=== PATIENT | female | born 1950 | race African-American/Black ===

== ENCOUNTER 2016-08-23 12:42 | Emergency (ER) | payer MEDICARE, BC ==
[~2016-08-23] VITALS: Ht 160 cm; Wt 95.3 kg
[~2016-08-23 12:42] MED LIST: ALBUTEROL2.5 MG/3 M INH; IBUPROFEN600 MG ORAL; LISINOPRIL5 MG ORAL; NORCO 5-325 TA1 EACH ORAL; PERCOCET 5-3251 EACH ORAL; SYNTHROID25 MCG PO; ZESTRIL10 MG PO
[2016-08-23 13:05] VITALS: BP 151/91
[2016-08-23] MEDS ORDERED: ROBAXIN-750750 MG PO (13:14)
[2016-08-23] MEDS ORDERED: NAPROSYN500 M1 ORAL (13:14)
[2016-08-23] MEDS ORDERED: Ketorolac 60mg Inj IM ONE (13:15)
--- NOTE | 2016-08-23 13:16 | Emergency Room Report ---
History of Present Illness General Chief Complaint: Lower Back Pain or Injury Source: Patient Present Illness HPI 58-year-old female complains of left-sided sciatica for 3 days. Associated symptoms includes lower left sided back pain that radiates to the left heel. States pain is currently at a 10 and worse with movement and pressing down the leg and penis slightly improved with [id number] Aleve and taking one Tylenol today. States that this is a chronic issue and she periodically does get flareups of her last flareup being a few months ago. Patient does Curry stretches at home as part of her chronic management of her sciatica. Patient denies any dysuria, incontinence, lower extremity weakness, foot drop, saddle anesthesia, numbness, or tingling. Allergies: Coded Allergies: No Known Allergies (Unverified , 05/26/12) Patient History Past Medical History: see triage record Now: No Immunizations: UTD Reviewed Nursing Documentation: PMH: Agreed, PSxH: Agreed Nursing Documentation-PMH Hx Hypertension: Yes Hx Asthma: Yes Hx Neurological Problems: Yes - thryoid Review of Systems All Other Systems: negative except mentioned in HPI Physical Exam Vital Signs Date Time Temp Pulse Resp B/P Pulse Ox O2 Delivery O2 Flow Rate FiO2 08/23/16 12:54 97.9 69 16 151/91 100 Room Air Sp02 EP Interpretation: reviewed, normal General Appearance: no apparent distress, alert, GCS 15, non-toxic Head: normocephalic, atraumatic Eyes: bilateral eye PERRL, bilateral eye normal inspection ENT: hearing grossly normal, normal voice Neck: full range of motion, supple/symm/no masses Respiratory: chest non-tender, lungs clear, normal breath sounds, speaking full sentences Cardiovascular #1: normal peripheral pulses, regular rate, rhythm, no edema, no murmur, no rub, normal capillary refill Cardiovascular #2: 2+ dorsalis pedis (R), 2+ dorsalis pedis (L) Genitourinary: no CVA tenderness Musculoskeletal: gait/station normal, normal range of motion, tender - + Left sided perispinal tenderness. No bony tenderness. No abnormal spinal curvature Neurologic: alert, oriented x3, responsive, motor strength/tone normal, DTRs symmetric, sensory intact, speech normal Psychiatric: judgement/insight normal, memory normal, mood/affect normal, no suicidal/homicidal ideation Reflexes: 3+ knee (R), 3+ knee (L) Skin: normal color, no rash, warm/dry, well hydrated Lymphatic: no adenopathy Medical Decision Making PA Attestation Dr. Lima my supervising physician with whom patient management has been discussed with. Diagnostic Impression: Primary Impression: Lumbago with sciatica, left side ER Course Pt. presents to the ED c/o chronic sciatica Ddx considered but are not limited to sciatica, muscle strain, trauma, spinal stenosis Vital signs: are WNL, pt. is afebrile H&PE are most consistent with lumbago with sciatica along L4 dermatome ORDERS: none required at this time, the diagnosis is clinical ED INTERVENTIONS: Toradol 60mg IM DISCHARGE: At this time pt. is stable for d/c to home. Will provide printed patient care instructions, and any necessary prescriptions. Care plan and follow up instructions have been discussed with the patient prior to discharge. Last Vital Signs Date Time Temp Pulse Resp B/P Pulse Ox O2 Delivery O2 Flow Rate FiO2 08/23/16 13:05 97.9 16 151/91 100 Room Air 08/23/16 12:54 69 Status: improved Disposition: HOME, SELF-CARE Scripts Methocarbamol* (ROBAXIN-750*) 750 Mg Tablet 750 MG PO TID, #21 TAB 0 Refills Prov: SABRY,TAMEEM P.A. 08/23/16 Naproxen* (NAPROSYN*) 500 Mg Tablet 500 MG ORAL TWICE A DAY for 14 Days, #30 TAB Prov: SABRY,TAMEEM P.A. 08/23/16 Patient Instructions: Back Pain, Adult Additional Instructions: Advised patient to take needed. Advised patient that muscle relaxers causes drowsiness and to not take it if they plan on leaving the house or operating heavy machinery. Patient education on Curry method back exercises for radiculopathy and given hand out with stretches detailed. Advised patient to sleep with pillow behind leg if laying supine or between the knees if laying on their side. Advised patient to wear proper footwear with good insoles in addition to good ergonomics while at home and at work. Patient encouraged for weight loss through diet and exercise to help prevent recurrence of future back pain. Advised patient to go to the ER immediately if she experiences any new LE numbness, weakness, irretractible back pain, or if any paralysis, urinary, or bowel incontinence begins. BRITANY REYNA Aug 23, 2016 13:16
[2016-08-23 13:30] VITALS: BP 151/91
== END 2016-08-23 13:34 | disposition home or self-care (01) ==
LOC: EMR 13:21
DX: M54.42 Lumbago with sciatica, left side (principal); I10 Essential (primary) hypertension; J45.909 Unspecified asthma, uncomplicated
CPT/HCPCS: 96372; 99284

== ENCOUNTER 2017-09-20 18:13 | Inpatient (IN) | payer MEDICARE, BC ==
[~2017-09-20] VITALS: Ht 160 cm; Wt 99.8 kg
[~2017-09-20 18:13] MED LIST changes: +NAPROSYN500 M1 ORAL; +ROBAXIN-750750 MG PO
[2017-09-20 18:31] VITALS: BP 134/76
[2017-09-20] MEDS ORDERED: Ipratropium 0.02% Inh Soln 2.5ml UD HHN ONE (18:45)
[2017-09-20] MEDS ORDERED: Solu-MEDROL 125mg Inj IVP ONE (18:45)
[2017-09-20] MEDS: Albuterol ud Inhalation HHN SCH ×3 (18:55→20:04)
[2017-09-20 19:21] LABS: BASOPHILS % (AUTO) 1.8 % (0.0-2.0); EOSINOPHILS % (AUTO) 3.5 % (0.0-3.0); HEMATOCRIT 34.3 % (37.0-47.0); HEMOGLOBIN 11.1 G/DL (12.0-16.0); LYMPHOCYTES % (AUTO) 30.8 % (20.0-45.0); MEAN CORPUSCULAR VOLUME 86 FL (80-99); MONOCYTES % (AUTO) 7.1 % (1.0-10.0); NEUTROPHILS % (AUTO) 56.7 % (45.0-75.0); PLATELET COUNT 277 K/UL (150-450); RED BLOOD COUNT 3.98 M/UL (4.20-5.40); RED CELL DISTRIBUTION WIDTH 13.8 % (11.6-14.8); WHITE BLOOD COUNT 6.4 K/UL (4.8-10.8)
[2017-09-20] MEDS ORDERED: VITAMIN D400 INTLU ORAL (19:24)
[2017-09-20 19:30] VITALS: BP 124/66
[2017-09-20 19:38] LABS: ANION GAP 9 mmol/L (5-15); BLOOD UREA NITROGEN 16 mg/dL (7-18); CALCIUM 8.7 MG/DL (8.5-10.1); CARBON DIOXIDE 25 MMOL/L (21-32); CHLORIDE 106 MMOL/L (98-107); POTASSIUM 4.4 MMOL/L (3.5-5.1); SODIUM 140 MMOL/L (136-145)
[2017-09-20 19:47] LABS: INR 0.9 (0.9-1.1)
[2017-09-20 19:50] LABS: ALANINE AMINOTRANSFERASE 26 U/L (12-78); ALBUMIN 3.2 G/DL (3.4-5.0); ALBUMIN/GLOBULIN RATIO 0.6 (1.0-2.7); ALKALINE PHOSPHATASE 76 U/L (46-116); ASPARTATE AMINO TRANSFERASE 27 U/L (15-37); BILIRUBIN,TOTAL 0.2 MG/DL (0.2-1.0); CREATINE KINASE 173 U/L (26-308)
[2017-09-20 20:30] VITALS: BP 129/74
[2017-09-20 20:52] LABS: APPEARANCE,URINE CLEAR; BILIRUBIN, URINE NEGATIVE (NEGATIVE); COLOR,URINE YELLOW; GLUCOSE, URINE (UA) NEGATIVE (NEGATIVE); KETONES,URINE NEGATIVE (NEGATIVE); LEUKOCYTE ESTERASE ,URINE 1+ (NEGATIVE); NITRITE,URINE NEGATIVE (NEGATIVE); PH,URINE 6 (4.5-8.0); PROTEIN,URINE NEGATIVE (NEGATIVE); UROBILINOGEN,URINE NORMAL MG/DL (0.0-1.0)
[2017-09-20] MEDS ORDERED: COZAAR25 MG ORAL (21:18)
[2017-09-20 21:30] VITALS: BP 126/70
[2017-09-20 22:30] VITALS: BP 109/69
--- NOTE | 2017-09-20 23:14 | Emergency Room Report ---
History of Present Illness General Chief Complaint: Dyspnea/Respdistress Source: Patient Present Illness HPI The patient presents with several days of dyspnea and wheezing. She's been using her nebulizer adding 3 doses at a time. It's been worse since Thursday. She denies any fevers but sometimes break out in sweats. She denies any chest pain. She has a cough that's been nonproductive. There is no vomiting or diarrhea and no dysuria. She states this is the worst attack she's ever had. She's never been intubated in the past. She's been off of steroids for some time at this point. She feels that she needs steroids at this time. She has had problem with allergies. She's had difficulty filling her prescriptions recently because of the cost and insurance - mostly inhalers and inhaled steroids. No chest pain, rashes, headache, sore throat, extremity pain, depression. TRISTAN. Stress test 1 1/2 years ago "normal". Allergies: Coded Allergies: No Known Allergies (Unverified , 05/26/12) Patient History Past Medical History: see triage record Social History: Denies: smoking, alcohol use Social History Narrative lives by self Last Menstrual Period: na Reviewed Nursing Documentation: PMH: Agreed, PSxH: Agreed Nursing Documentation-PMH Past Medical History: No History, Except For Hx Hypertension: Yes Hx Asthma: Yes Hx Neurological Problems: Yes - thryoid Review of Systems All Other Systems: negative except mentioned in HPI Physical Exam Vital Signs Date Time Temp Pulse Resp B/P (MAP) Pulse Ox O2 Delivery O2 Flow Rate FiO2 09/20/17 18:21 98.1 79 24 142/82 96 Room Air 98.1 09/20/17 18:49 21 Sp02 EP Interpretation: reviewed, normal General Appearance: well appearing, no apparent distress, GCS 15 Head: normocephalic Eyes: bilateral eye normal inspection, bilateral eye PERRL ENT: normal pharynx, moist mucus membranes Neck: supple Respiratory: wheezing, expiration - audible at bedside Cardiovascular #1: regular rate, rhythm Cardiovascular #2: 2+ radial (R) Gastrointestinal: normal inspection, normal bowel sounds, non tender, no mass, non-distended, overweight Musculoskeletal: back normal, gait/station normal, normal range of motion, no calf tenderness Neurologic: alert, oriented x3, grossly normal Psychiatric: mood/affect normal Skin: normal inspection, warm/dry Medical Decision Making Diagnostic Impression: Primary Impression: COPD exacerbation Additional Impression: Eosinophilia ER Course Patient presents with dyspnea and wheezing - "worst asthma attack ever". DDx: AMi, asthma, bronchitis, pneumonia, PE amongst others. Latter unlikely clinically. Evaluation with EKG, CXR and labs. Treatment with steroids, beta agents and hydration. EKG no acute injury. CXR no infiltrate. WBC normal with eosinophilia. CMP unremarkable. Improved with aggressive treatment, however still with some tightness in chest. As "worst attack" needs continued treatment and hospitalization. Admit telemetry. Laboratory Tests Test 09/20/17 19:00 09/20/17 20:40 White Blood Count 6.4 K/UL (4.8-10.8) Red Blood Count 3.98 M/UL (4.20-5.40) L Hemoglobin 11.1 G/DL (12.0-16.0) L Hematocrit 34.3 % (37.0-47.0) L Mean Corpuscular Volume 86 FL (80-99) Mean Corpuscular Hemoglobin 27.8 PG (27.0-31.0) Mean Corpuscular Hemoglobin Concent 32.3 G/DL (32.0-36.0) Red Cell Distribution Width 13.8 % (11.6-14.8) Platelet Count 277 K/UL (150-450) Mean Platelet Volume 8.5 FL (6.5-10.1) Neutrophils (%) (Auto) 56.7 % (45.0-75.0) Lymphocytes (%) (Auto) 30.8 % (20.0-45.0) Monocytes (%) (Auto) 7.1 % (1.0-10.0) Eosinophils (%) (Auto) 3.5 % (0.0-3.0) H Basophils (%) (Auto) 1.8 % (0.0-2.0) Prothrombin Time 9.9 SEC (9.30-11.50) Prothrombin Time INR 0.9 (0.9-1.1) PTT 29 SEC (23-33) Sodium Level 140 MMOL/L (136-145) Potassium Level 4.4 MMOL/L (3.5-5.1) Chloride Level 106 MMOL/L (98-107) Carbon Dioxide Level 25 MMOL/L (21-32) Anion Gap 9 mmol/L (5-15) Blood Urea Nitrogen 16 mg/dL (7-18) Creatinine 1.0 MG/DL (0.55-1.30) Estimate Glomerular Filtration Rate > 60 mL/min (>60) Glucose Level 99 MG/DL (74-106) Lactic Acid Level 0.90 mmol/L (0.66-2.22) Calcium Level 8.7 MG/DL (8.5-10.1) Total Bilirubin 0.2 MG/DL (0.2-1.0) Aspartate Amino Transferase (AST) 27 U/L (15-37) Alanine Aminotransferase (ALT) 26 U/L (12-78) Alkaline Phosphatase 76 U/L (46-116) Total Creatine Kinase 173 U/L (26-308) Troponin I 0.000 ng/mL (0.000-0.056) Pro-B-Type Natriuretic Peptide 115 pg/mL (0-125) Total Protein 8.2 G/DL (6.4-8.2) Albumin 3.2 G/DL (3.4-5.0) L Globulin 5.0 g/dL Albumin/Globulin Ratio 0.6 (1.0-2.7) L Urine Color Yellow Urine Appearance Clear Urine pH 6 (4.5-8.0) Urine Specific [place] 1.010 (1.005-1.035) Urine Protein Negative (NEGATIVE) Urine Glucose (UA) Negative (NEGATIVE) Urine Ketones Negative (NEGATIVE) Urine Occult Blood Negative (NEGATIVE) Urine Nitrite Negative (NEGATIVE) Urine Bilirubin Negative (NEGATIVE) Urine Urobilinogen Normal MG/DL (0.0-1.0) Urine Leukocyte Esterase 1+ (NEGATIVE) H Urine RBC 0-2 /HPF (0 - 2) Urine WBC 5-10 /HPF (0 - 2) H Urine Squamous Epithelial Cells Few /LPF (NONE/OCC) Urine Bacteria Few /HPF (NONE) EKG Diagnostic Results Rate: normal Rhythm: NSR ST Segments: no acute changes Rhythm Strip Diag. Results EP Interpretation: yes Rhythm: NSR, no PVC's, no ectopy Chest X-Ray Diagnostic Results Chest X-Ray Diagnostic Results : Chest X-Ray Ordered: Yes # of Views/Limited/Complete: 1 View Indication: Shortness of Breath Interpretation: no consolidation, no effusion, no pneumothorax, other - COPD Impression: Other Electronically Signed by: Electronically signed by Darrion Gramajo MD Last Vital Signs Date Time Temp Pulse Resp B/P (MAP) Pulse Ox O2 Delivery O2 Flow Rate FiO2 09/21/17 00:30 98.0 82 16 134/61 100 Room Air 21 98.0 Status: improved Disposition: ADMITTED INPATIENT Condition: Serious Referrals: NON PHYSICIAN (PCP) Darrion Gramajo M.D. Sep 20, 2017 23:14
[2017-09-20 23:30] VITALS: BP 148/56
[2017-09-21] VITALS (12 sets, daily range): BP systolic 117–145; BP diastolic 61–92
[2017-09-21] MEDS ORDERED: Norco 5mg/325mg tab ORAL ONE (05:15)
[2017-09-21] MEDS ORDERED: LORazepam Inj 2mg/ml 1ml IV PRN (07:15)
[2017-09-21] MEDS ORDERED: Promethazine/Codeine 5ml UD ORAL PRN (07:15)
[2017-09-21] MEDS ORDERED: Morphine Sulfate 2mg/ml Inj IVP PRN (07:15)
[2017-09-21] MEDS ORDERED: Nitroglycerin Subl 0.4mg tab SL PRN (07:15)
[2017-09-21] MEDS ORDERED: Albuterol/Ipratropium 3ml neb HHN PRN (07:15)
[2017-09-21] MEDS: Losartan 50mg tab ORAL SCH (09:25)
[2017-09-21] MEDS: Methocarbamol 750mg tab ORAL SCH ×3 (09:25→18:17)
[2017-09-21] MEDS: Naproxen 500mg tab ORAL SCH ×2 (09:25→18:17)
[2017-09-21] MEDS: Heparin 5000 units/ml inj SUBQ SCH ×2 (09:26→20:34)
--- NOTE | 2017-09-21 09:49 | Diagnostic Imaging Report ---
Indication: Dyspnea Technique: One view of the chest Comparison: 09/30/2015 Findings: Better inspiration currently. Lungs and pleural spaces are clear. The heart size is normal. Previously demonstrated interstitial prominence is not evident currently. Right shoulder reverse prosthesis is again demonstrated Impression: No acute process
[2017-09-21] MEDS: Theophylline ER 100mg ORAL SCH ×2 (09:50→20:32)
[2017-09-21] MEDS: Zosyn 3.375gm q8h **Extended infusion IVPB SCH ×4 (10:28→19:53)
[2017-09-21] MEDS ORDERED: Zosyn 3.375gm inj ONE (10:29)
[2017-09-21] MEDS ORDERED: Piperacillin/Tazobactam 2.25 GM in D5W 55 ML IV SCH (14:00)
[2017-09-21] MEDS: Solu-MEDROL 125mg Inj IV SCH ×2 (15:03→18:17)
--- NOTE | 2017-09-21 19:45 | History and Physical Report ---
DATE OF ADMISSION: 09/20/2017 TIME SEEN: At 3 p.m. SWITCHBOARD OPERATOR ASSISTANT: Navdeep Horne M.D. CHIEF COMPLAINT: Asthma, exacerbation of COPD. BRIEF HISTORY: This is a 67-year-old female who lives at home and presented with shortness of breath, increasing for two days, came to [facility], diagnosed with asthma and COPD exacerbation, admitted to telemetry for further care. Currently, calm, slight shortness of breath, no complaint. PAST MEDICAL HISTORY: Includes asthma, COPD, and hypertension. PAST SURGICAL HISTORY: Bilateral knee and right shoulder. MEDICATIONS: Include methylprednisolone, Zosyn, losartan, Robaxin, naproxen, heparin, theophylline, albuterol, lorazepam, morphine, Phenergan With Codeine, and temazepam. ALLERGIES: Denies. SOCIAL HISTORY: No smoking. Positive alcohol. No intravenous drug abuse. FAMILY HISTORY: Noncontributory. REVIEW OF SYSTEMS: No chest pain. Slight shortness of breath. No nausea, vomiting, or diarrhea. PHYSICAL EXAMINATION: GENERAL: Calm in bed, oriented x3, in no acute distress. VITAL SIGNS: Temperature is 98 degrees, pulse 98, respiratory rate 14, and blood pressure 129/67. CARDIOVASCULAR: No murmur. LUNGS: Poor air exchange. Slight wheeze bilaterally. ABDOMEN: Bowel sounds positive. Nontender. Nondistended. EXTREMITIES: No cyanosis or edema. NEUROLOGIC: The patient moves all extremities, slightly weak. LABORATORY DATA: Labs at this time show hemoglobin 11.1, otherwise CBC is normal. BMP shows albumin 3.2, otherwise BMP is normal. INR is 0.9, PTT 29. Urinalysis shows 1+ leukocyte esterase. ASSESSMENT: 1. UTI. 2. Asthma. 3. COPD exacerbation. 4. Anemia. 5. Hypertension. PLAN: 1. O2 and pulmonary treatment. 2. Antibiotics per Infectious Disease. 3. Taper off steroids. 4. CBC and BMP in the morning. 5. We will continue to follow this patient medically. Santosh Reyes D.O. DR: JOSE JOB#: [id number] CC:
--- NOTE | 2017-09-21 22:42 | Consultation ---
History of Present Illness General Chief Complaint: Dyspnea/Respdistress Present Illness Allergies: Coded Allergies: No Known Allergies (Unverified , 05/26/12) Medication History Scheduled Levothyroxine Sodium* (Synthroid*), MCG PO DAILY, (Reported) Losartan Potassium* (Cozaar*), Unknown Dose ORAL DAILY, (Reported) Methocarbamol* (Robaxin-750*), 750 MG PO TID Naproxen* (Naprosyn*), 500 MG ORAL TWICE A DAY Scheduled PRN Albuterol Sulfate* (Albuterol Sulfate Hhn*), 3 ML INH Q6H PRN for Shortness of Breath, (Reported) Hydrocodone Bit/Acetaminophen 5-325* ([place] 5-325*), 1 TAB ORAL Q6H PRN for For Pain Ibuprofen* (Motrin*), 600 MG ORAL Q8H PRN for For Pain Oxycodone/Acetaminophen 5-325* (Percocet 5-325 Mg Tablet*), 1 TAB ORAL Q6H PRN for For Pain Discontinued Medications Lisinopril (Lisinopril*), MG ORAL DAILY, (Reported) Discontinued Reason: Pt stopped taking med Patient History Healthcare decision maker Resuscitation status Advanced Directive on File Review of Systems All Other Systems: negative except mentioned in HPI Physical Exam Physical Exam Narrative General Appearance: WD/WN Lines, tubes and drains: peripheral HEENT: normocephalic, atraumatic Neck: non-tender, normal alignment Respiratory/Chest: chest wall non-tender, + wheezing Breasts: no masses Cardiovascular/Chest: normal peripheral pulses, normal rate, no JVD Abdomen: normal bowel sounds, non tender Genitourinary/Rectal: normal genital exam Extremities: normal range of motion, non-tender Skin Exam: normal pigmentation, warm/dry Last 24 Hour Vital Signs Date Time Temp Pulse Resp B/P (MAP) Pulse Ox O2 Delivery O2 Flow Rate FiO2 09/21/17 19:22 87 16 Room Air 21 09/21/17 19:16 98.1 09/21/17 18:17 98.1 09/21/17 13:40 98.1 90 14 121/67 100 Room Air 21 98.1 09/21/17 11:58 98.1 90 14 121/67 100 Room Air 98.1 09/21/17 10:42 98.1 88 18 129/72 100 Room Air 98.1 09/21/17 09:25 98.1 09/21/17 09:25 121/68 09/21/17 09:02 98.1 93 21 121/68 100 Room Air 98.1 09/21/17 06:30 98.1 82 16 131/71 99 Room Air 21 98.1 09/21/17 06:09 208.4 09/21/17 05:30 208.4 86 18 118/67 99 Room Air 21 208.4 09/21/17 05:10 98.0 09/21/17 04:30 98.2 82 16 145/73 100 Room Air 21 98.2 09/21/17 03:30 98.2 88 18 124/65 99 Room Air 21 98.2 09/21/17 02:30 98.0 77 16 117/67 100 Room Air 21 98.0 09/21/17 01:30 98.0 80 17 130/62 100 Room Air 21 98.0 09/21/17 00:30 98.0 82 16 134/61 100 Room Air 21 98.0 09/20/17 23:30 98.0 86 17 148/56 100 Room Air 21 98.0 Intake and Output 09/20/17 09/21/17 19:00 07:00 Intake Total 0 ml 1000 ml Balance 0 ml 1000 ml Intake Oral 0 ml IV Total 1000 ml # Voids 3 Height (Feet): 5 Height (Inches): 3.00 Weight (Pounds): 220 Medications Current Medications Medications (Trade) Dose Ordered Sig/Catalino Route PRN Reason Start Time Stop Time Status Last Admin Dose Admin Albuterol/ Ipratropium (Albuterol/ Ipratropium) 3 ml Q4H PRN HHN dyspnea 09/21/17 07:15 09/26/17 07:14 Dextrose (Dextrose 50%) STAT PRN IV Hypoglycemia 09/21/17 07:15 10/21/17 07:14 Heparin Sodium (Porcine) (Heparin 5000 units/ml) 5,000 units EVERY 12 HOURS SUBQ 09/21/17 09:00 10/21/17 08:59 09/21/17 20:34 Lorazepam (Ativan 2mg/ml 1ml) 0.5 mg Q4H PRN IV For Anxiety 09/21/17 07:15 09/28/17 07:14 Losartan Potassium (Cozaar) 100 mg DAILY ORAL 09/21/17 09:00 10/21/17 08:59 09/21/17 09:25 Methocarbamol (Robaxin) 750 mg TID ORAL 09/21/17 09:00 10/21/17 08:59 09/21/17 18:17 Methylprednisolone Sodium Succinate (Solu-MEDROL) 60 mg EVERY 6 HOURS IV 09/21/17 12:00 10/21/17 11:59 09/21/17 18:17 Morphine Sulfate (Morphine Sulfate) 2 mg Q4H PRN IVP severe pain 7-10 09/21/17 07:15 09/28/17 07:14 Naproxen (Naprosyn) 500 mg TWICE A DAY ORAL 09/21/17 09:00 10/21/17 08:59 09/21/17 18:17 Nitroglycerin (Ntg) 0.4 mg Q5M X 3 DOSES PRN SL Prn Chest Pain 09/21/17 07:15 10/21/17 07:14 Ondansetron HCl (Zofran) 4 mg Q6H PRN IVP Nausea & Vomiting 09/21/17 07:15 10/21/17 07:14 Piperacillin Sod/ Tazobactam Sod 3.375 gm/Sodium Chloride 110 ml @ 27.5 mls/hr Q8HR@0200,1000,1800 IVPB 09/21/17 10:00 09/28/17 09:59 09/21/17 19:53 Promethazine HCl/ Codeine (Phenergan with Codeine) 5 ml Q6H PRN ORAL cough 09/21/17 07:15 10/21/17 07:14 Temazepam (Restoril) 15 mg HSPRN PRN ORAL Insomnia 09/21/17 07:15 09/28/17 07:14 09/21/17 20:33 Theophylline (Diogo-Dur) 100 mg EVERY 12 HOURS ORAL 09/21/17 09:00 10/21/17 08:59 09/21/17 20:32 Assessment/Plan Problem List: (1) COPD exacerbation ICD Codes: J44.1 - Chronic obstructive pulmonary disease with (acute) exacerbation SNOMED: 261914924 (2) Chronic pain ICD Codes: G89.29 - Other chronic pain SNOMED: 02742013 (3) Hypothyroidism ICD Codes: E03.9 - Hypothyroidism, unspecified SNOMED: 13932295 Navdeep Horne MD Sep 21, 2017 22:42
[2017-09-22] VITALS: BP 114/66
[2017-09-22] MEDS: Solu-MEDROL 125mg Inj IV SCH ×3 (00:37→12:15)
[2017-09-22] MEDS: Zosyn 3.375gm q8h **Extended infusion IVPB SCH ×4 (02:20→09:28)
[2017-09-22 04:00] VITALS: BP 130/87
[2017-09-22 08:00] VITALS: BP 150/94
[2017-09-22 08:26] LABS: HEMATOCRIT 34.6 % (37.0-47.0); HEMOGLOBIN 11.3 G/DL (12.0-16.0); MEAN CORPUSCULAR VOLUME 86 FL (80-99); PLATELET COUNT 308 K/UL (150-450); RED BLOOD COUNT 4.02 M/UL (4.20-5.40); RED CELL DISTRIBUTION WIDTH 14.1 % (11.6-14.8)
[2017-09-22] MEDS: Losartan 50mg tab ORAL SCH (08:30)
[2017-09-22] MEDS: Naproxen 500mg tab ORAL SCH ×2 (08:31→17:08)
[2017-09-22] MEDS: Theophylline ER 100mg ORAL SCH ×2 (08:31→22:18)
[2017-09-22] MEDS: Methocarbamol 750mg tab ORAL SCH ×3 (08:32→17:09)
[2017-09-22] MEDS: Heparin 5000 units/ml inj SUBQ SCH ×2 (08:36→22:17)
[2017-09-22 08:53] LABS: ANION GAP 12 mmol/L (5-15); BLOOD UREA NITROGEN 24 mg/dL (7-18); CALCIUM 8.9 MG/DL (8.5-10.1); CARBON DIOXIDE 22 MMOL/L (21-32); CHLORIDE 108 MMOL/L (98-107); CREATININE 1.1 MG/DL (0.55-1.30); POTASSIUM 4.1 MMOL/L (3.5-5.1); SODIUM 142 MMOL/L (136-145)
[2017-09-22 12:00] VITALS: BP 109/70
--- NOTE | 2017-09-22 13:26 | Pulmonology Progress Note ---
Assessment/Plan Problems: (1) COPD exacerbation (2) Hypothyroidism (3) Chronic pain Assessment/Plan respiratory treatment IV steroids iv abx titrate fio2 to sat of 92% check electrolytes pain management symptomatic treatment Subjective ROS Limited/Unobtainable: No Interval Events: less short of breath Allergies: Coded Allergies: No Known Allergies (Unverified , 05/26/12) Objective Last 24 Hour Vital Signs Date Time Temp Pulse Resp B/P (MAP) Pulse Ox O2 Delivery O2 Flow Rate FiO2 09/22/17 12:00 97.7 82 18 109/70 96 Room Air 97.7 09/22/17 12:00 83 09/22/17 10:05 82 16 Room Air 21 09/22/17 08:30 150/94 09/22/17 08:00 97.2 84 18 150/94 98 Room Air 97.2 84 09/22/17 08:00 89 09/22/17 04:00 97.5 84 18 130/87 98 Room Air 97.5 09/22/17 04:00 81 09/22/17 00:00 85 09/22/17 00:00 97.5 87 18 114/66 96 Room Air 97.5 09/21/17 20:00 97.7 84 18 135/92 96 Room Air 97.7 09/21/17 20:00 88 09/21/17 19:22 87 16 Room Air 21 09/21/17 19:16 98.1 09/21/17 18:17 98.1 09/21/17 13:40 98.1 90 14 121/67 100 Room Air 21 98.1 Intake and Output 09/21/17 09/22/17 19:00 07:00 Intake Total 240 ml 1610.5 ml Output Total 20 ml Balance 240 ml 1590.5 ml Intake Oral 240 ml IV Total 1610.5 ml Output Urine Total 20 ml # Voids 2 # Bowel Movements 1 Objective General Appearance: WD/WN Lines, tubes and drains: peripheral HEENT: normocephalic, atraumatic Neck: non-tender, normal alignment Respiratory/Chest: chest wall non-tender, lungs clear, normal breath sounds Breasts: no masses Cardiovascular/Chest: normal peripheral pulses, normal rate, no JVD Abdomen: normal bowel sounds, non tender Genitourinary/Rectal: normal genital exam Extremities: normal range of motion, non-tender Skin Exam: normal pigmentation, warm/dry Microbiology Date/Time Source Procedure Growth Status 09/20/17 19:05 Blood Blood Culture - Preliminary NO GROWTH AFTER 24 HOURS Resulted 09/20/17 19:00 Blood Blood Culture - Preliminary NO GROWTH AFTER 24 HOURS Resulted Laboratory Tests 09/22/17 07:55: White Blood Count 16.0H, Red Blood Count 4.02L, Hemoglobin 11.3L, Hematocrit 34.6L, Mean Corpuscular Volume 86, Mean Corpuscular Hemoglobin 28.2, Mean Corpuscular Hemoglobin Concent 32.7, Red Cell Distribution Width 14.1, Platelet Count 308, Mean Platelet Volume 8.5, Neutrophils (%) (Auto) , Lymphocytes (%) ( Auto) , Monocytes (%) (Auto) , Eosinophils (%) (Auto) , Basophils (%) (Auto) , Differential Total Cells Counted 100, Neutrophils % (Manual) 95H, Lymphocytes % (Manual) 4L, Monocytes % (Manual) 1, Eosinophils % (Manual) 0, Basophils % ( Manual) 0, Band Neutrophils 0, Platelet Estimate Adequate, Platelet Morphology Normal, Anisocytosis 1+, Sodium Level 142, Potassium Level 4.1, Chloride Level 108H, Carbon Dioxide Level 22, Anion Gap 12, Blood Urea Nitrogen 24H, Creatinine 1.1, Estimat Glomerular Filtration Rate 59.8, Glucose Level 144H, Calcium Level 8.9 Current Medications Medications (Trade) Dose Ordered Sig/Catalino Route PRN Reason Start Time Stop Time Status Last Admin Dose Admin Albuterol/ Ipratropium (Albuterol/ Ipratropium) 3 ml Q4H PRN HHN dyspnea 09/21/17 07:15 09/26/17 07:14 Dextrose (Dextrose 50%) STAT PRN IV Hypoglycemia 09/21/17 07:15 10/21/17 07:14 Heparin Sodium (Porcine) (Heparin 5000 units/ml) 5,000 units EVERY 12 HOURS SUBQ 09/21/17 09:00 10/21/17 08:59 09/22/17 08:36 Lorazepam (Ativan 2mg/ml 1ml) 0.5 mg Q4H PRN IV For Anxiety 09/21/17 07:15 09/28/17 07:14 09/22/17 02:35 Losartan Potassium (Cozaar) 100 mg DAILY ORAL 09/21/17 09:00 10/21/17 08:59 09/22/17 08:30 Methocarbamol (Robaxin) 750 mg TID ORAL 09/21/17 09:00 10/21/17 08:59 09/22/17 12:15 Methylprednisolone Sodium Succinate (Solu-MEDROL) 60 mg EVERY 6 HOURS IV 09/21/17 12:00 10/21/17 11:59 09/22/17 12:15 Morphine Sulfate (Morphine Sulfate) 2 mg Q4H PRN IVP severe pain 7-10 09/21/17 07:15 09/28/17 07:14 Naproxen (Naprosyn) 500 mg TWICE A DAY ORAL 09/21/17 09:00 10/21/17 08:59 09/22/17 08:31 Nitroglycerin (Ntg) 0.4 mg Q5M X 3 DOSES PRN SL Prn Chest Pain 09/21/17 07:15 10/21/17 07:14 Ondansetron HCl (Zofran) 4 mg Q6H PRN IVP Nausea & Vomiting 09/21/17 07:15 10/21/17 07:14 Piperacillin Sod/ Tazobactam Sod 3.375 gm/Sodium Chloride 110 ml @ 27.5 mls/hr Q8HR@0200,1000,1800 IVPB 09/21/17 10:00 09/28/17 09:59 09/22/17 09:28 Promethazine HCl/ Codeine (Phenergan with Codeine) 5 ml Q6H PRN ORAL cough 09/21/17 07:15 10/21/17 07:14 Temazepam (Restoril) 15 mg HSPRN PRN ORAL Insomnia 09/21/17 07:15 09/28/17 07:14 09/21/17 20:33 Theophylline (Diogo-Dur) 100 mg EVERY 12 HOURS ORAL 09/21/17 09:00 10/21/17 08:59 09/22/17 08:31 Navdeep Horne MD Sep 22, 2017 13:25
--- NOTE | 2017-09-22 14:32 | General Progress Note ---
Assessment/Plan Problem List: (1) UTI (urinary tract infection) ICD Codes: N39.0 - Urinary tract infection, site not specified SNOMED: 88170428 (2) Asthma ICD Codes: J45.909 - Unspecified asthma, uncomplicated SNOMED: 581503166 (3) HTN (hypertension) ICD Codes: I10 - Essential (primary) hypertension SNOMED: 08815636 (4) Anemia ICD Codes: D64.9 - Anemia, unspecified SNOMED: 864106572 (5) SOB (shortness of breath) ICD Codes: R06.02 - Shortness of breath SNOMED: 253555387 (6) COPD exacerbation ICD Codes: J44.1 - Chronic obstructive pulmonary disease with (acute) exacerbation SNOMED: 795749348 (7) Chronic pain ICD Codes: G89.29 - Other chronic pain SNOMED: 89527624 Status: unchanged Assessment/Plan o2 pulm tx taper steroids pum f/u cbc bmp am Subjective Constitutional: Reports: weakness Respiratory: Reports: shortness of breath Allergies: Coded Allergies: No Known Allergies (Unverified , 05/26/12) All Systems: reviewed and negative except above Subjective calm in bed Objective Last 24 Hour Vital Signs Date Time Temp Pulse Resp B/P (MAP) Pulse Ox O2 Delivery O2 Flow Rate FiO2 09/22/17 12:00 97.7 82 18 109/70 96 Room Air 97.7 09/22/17 12:00 83 09/22/17 10:05 82 16 Room Air 21 09/22/17 08:30 150/94 09/22/17 08:00 97.2 84 18 150/94 98 Room Air 97.2 84 09/22/17 08:00 89 09/22/17 04:00 97.5 84 18 130/87 98 Room Air 97.5 09/22/17 04:00 81 09/22/17 00:00 85 09/22/17 00:00 97.5 87 18 114/66 96 Room Air 97.5 09/21/17 20:00 97.7 84 18 135/92 96 Room Air 97.7 09/21/17 20:00 88 09/21/17 19:22 87 16 Room Air 21 09/21/17 19:16 98.1 09/21/17 18:17 98.1 Intake and Output 09/21/17 09/22/17 19:00 07:00 Intake Total 240 ml 1610.5 ml Output Total 20 ml Balance 240 ml 1590.5 ml Intake Oral 240 ml IV Total 1610.5 ml Output Urine Total 20 ml # Voids 2 # Bowel Movements 1 Laboratory Tests 09/22/17 07:55: White Blood Count 16.0H, Red Blood Count 4.02L, Hemoglobin 11.3L, Hematocrit 34.6L, Mean Corpuscular Volume 86, Mean Corpuscular Hemoglobin 28.2, Mean Corpuscular Hemoglobin Concent 32.7, Red Cell Distribution Width 14.1, Platelet Count 308, Mean Platelet Volume 8.5, Neutrophils (%) (Auto) , Lymphocytes (%) ( Auto) , Monocytes (%) (Auto) , Eosinophils (%) (Auto) , Basophils (%) (Auto) , Differential Total Cells Counted 100, Neutrophils % (Manual) 95H, Lymphocytes % (Manual) 4L, Monocytes % (Manual) 1, Eosinophils % (Manual) 0, Basophils % ( Manual) 0, Band Neutrophils 0, Platelet Estimate Adequate, Platelet Morphology Normal, Anisocytosis 1+, Sodium Level 142, Potassium Level 4.1, Chloride Level 108H, Carbon Dioxide Level 22, Anion Gap 12, Blood Urea Nitrogen 24H, Creatinine 1.1, Estimat Glomerular Filtration Rate 59.8, Glucose Level 144H, Calcium Level 8.9 Height (Feet): 5 Height (Inches): 3.00 Weight (Pounds): 220 General Appearance: alert EENT: normal ENT inspection Neck: normal alignment Cardiovascular: normal peripheral pulses, normal rate, regular rhythm Respiratory/Chest: decreased breath sounds Abdomen: normal bowel sounds, non tender, soft Extremities: normal inspection Edema: no edema noted Arm (L), no edema noted Arm (R), no edema noted Leg (L), no edema noted Leg (R), no edema noted Pedal (L), no edema noted Pedal (R), no edema noted Generalized Neurologic: responsive, motor weakness Skin: normal pigmentation, warm/dry IFTIKHAR TARIQ Sep 22, 2017 14:32
[2017-09-22] MEDS ORDERED: Nitroglycerin Subl 0.4mg tab SL PRN (15:30)
[2017-09-22 15:57] VITALS: BP 137/84
[2017-09-22] MEDS: Piperacillin/Tazobactam 3.375 GM in NS 110 ML IVPB SCH (18:21)
[2017-09-22] MEDS ORDERED: LORazepam Inj 2mg/ml 1ml IV PRN (19:15)
[2017-09-22] MEDS ORDERED: Promethazine/Codeine 5ml UD ORAL PRN (19:15)
[2017-09-22] MEDS ORDERED: Morphine Sulfate 2mg/ml Inj IVP PRN (19:15)
[2017-09-22 20:02] VITALS: BP 135/83
[2017-09-22] MEDS: Flonase Nasal Inhaler 16gm NASAL SCH (21:00)
[2017-09-23] VITALS: BP 147/82
[2017-09-23] MEDS: Piperacillin/Tazobactam 3.375 GM in NS 110 ML IVPB SCH ×3 (01:59→17:24)
[2017-09-23 04:00] VITALS: BP 118/71
[2017-09-23 07:40] LABS: BASOPHILS % (AUTO) 0.2 % (0.0-2.0); HEMATOCRIT 31.2 % (37.0-47.0); HEMOGLOBIN 10.2 G/DL (12.0-16.0); LYMPHOCYTES % (AUTO) 8.9 % (20.0-45.0); MEAN CORPUSCULAR VOLUME 87 FL (80-99); MONOCYTES % (AUTO) 7.5 % (1.0-10.0); NEUTROPHILS % (AUTO) 83.4 % (45.0-75.0); PLATELET COUNT 243 K/UL (150-450); RED BLOOD COUNT 3.61 M/UL (4.20-5.40); RED CELL DISTRIBUTION WIDTH 13.9 % (11.6-14.8); WHITE BLOOD COUNT 15.8 K/UL (4.8-10.8)
[2017-09-23 08:00] VITALS: BP 147/90
[2017-09-23 08:04] LABS: ALANINE AMINOTRANSFERASE 19 U/L (12-78); ALBUMIN 3.1 G/DL (3.4-5.0); ALBUMIN/GLOBULIN RATIO 0.8 (1.0-2.7); ALKALINE PHOSPHATASE 65 U/L (46-116); ANION GAP 10 mmol/L (5-15); ASPARTATE AMINO TRANSFERASE 12 U/L (15-37); BILIRUBIN,TOTAL 0.3 MG/DL (0.2-1.0); BLOOD UREA NITROGEN 25 mg/dL (7-18); CALCIUM 8.5 MG/DL (8.5-10.1); CARBON DIOXIDE 25 MMOL/L (21-32); CHLORIDE 110 MMOL/L (98-107); CREATININE 1.2 MG/DL (0.55-1.30); POTASSIUM 4.1 MMOL/L (3.5-5.1); SODIUM 145 MMOL/L (136-145)
[2017-09-23] MEDS: Flonase Nasal Inhaler 16gm NASAL SCH ×2 (08:27→20:38)
[2017-09-23] MEDS: Methocarbamol 750mg tab ORAL SCH ×3 (08:28→17:24)
[2017-09-23] MEDS: Naproxen 500mg tab ORAL SCH ×2 (08:28→17:23)
[2017-09-23] MEDS: Theophylline ER 100mg ORAL SCH ×2 (08:28→20:38)
[2017-09-23] MEDS: Losartan 50mg tab ORAL SCH (08:33)
[2017-09-23] MEDS: Heparin 5000 units/ml inj SUBQ SCH ×2 (08:41→20:41)
[2017-09-23] MEDS ORDERED: Solu-MEDROL 125mg Inj IV SCH ×2 (09:00)
[2017-09-23 12:00] VITALS: BP 128/59
--- NOTE | 2017-09-23 14:54 | General Progress Note ---
Assessment/Plan Problem List: (1) Asthma ICD Codes: J45.909 - Unspecified asthma, uncomplicated SNOMED: 709065025 (2) HTN (hypertension) ICD Codes: I10 - Essential (primary) hypertension SNOMED: 96862523 (3) Anemia ICD Codes: D64.9 - Anemia, unspecified SNOMED: 451121610 (4) SOB (shortness of breath) ICD Codes: R06.02 - Shortness of breath SNOMED: 638565866 (5) COPD exacerbation ICD Codes: J44.1 - Chronic obstructive pulmonary disease with (acute) exacerbation SNOMED: 174731168 (6) Chronic pain ICD Codes: G89.29 - Other chronic pain SNOMED: 95380676 (7) UTI (urinary tract infection) ICD Codes: N39.0 - Urinary tract infection, site not specified SNOMED: 16388805 (8) Headache ICD Codes: R51 - Headache SNOMED: 78140543 Status: unchanged Assessment/Plan o2 pulm tx taper steroids pum f/u cbc bmp am neuro eval Subjective Constitutional: Reports: weakness Allergies: Coded Allergies: No Known Allergies (Unverified , 05/26/12) All Systems: reviewed and negative except above Subjective c/o head ache and sl sob Objective Last 24 Hour Vital Signs Date Time Temp Pulse Resp B/P (MAP) Pulse Ox O2 Delivery O2 Flow Rate FiO2 09/23/17 12:00 96.4 66 18 128/59 99 96.4 09/23/17 12:00 96.4 66 18 128/59 99 Room Air 96.4 09/23/17 08:33 118/71 09/23/17 08:01 Room Air 09/23/17 08:00 97.6 78 20 147/90 100 97.6 09/23/17 07:08 76 18 Room Air 21 09/23/17 04:00 Room Air 09/23/17 04:00 97.5 69 18 118/71 100 97.5 09/23/17 02:23 97.6 09/23/17 01:53 97.6 09/23/17 00:00 97.6 87 18 147/82 96 97.6 09/23/17 00:00 Room Air 09/22/17 21:41 84 17 Room Air 09/22/17 20:02 97.6 88 18 135/83 97 97.6 3/20/18 15:57 97.6 85 18 137/84 96 Room Air 97.6 Intake and Output 09/22/17 09/23/17 19:00 07:00 Intake Total 600 ml 372.5 ml Balance 600 ml 372.5 ml Intake Oral 600 ml 345 ml IV Total 27.5 ml # Voids 4 3 Laboratory Tests 09/23/17 05:10: White Blood Count 15.8H, Red Blood Count 3.61L, Hemoglobin 10.2L, Hematocrit 31.2L, Mean Corpuscular Volume 87, Mean Corpuscular Hemoglobin 28.2, Mean Corpuscular Hemoglobin Concent 32.6, Red Cell Distribution Width 13.9, Platelet Count 243, Mean Platelet Volume 8.3, Neutrophils (%) (Auto) 83.4H, Lymphocytes ( %) (Auto) 8.9L, Monocytes (%) (Auto) 7.5, Eosinophils (%) (Auto) 0.0, Basophils (%) (Auto) 0.2, Sodium Level 145, Potassium Level 4.1, Chloride Level 110H, Carbon Dioxide Level 25, Anion Gap 10, Blood Urea Nitrogen 25H, Creatinine 1.2, Estimat Glomerular Filtration Rate 53.9, Glucose Level 117H, Calcium Level 8.5, Total Bilirubin 0.3, Aspartate Amino Transf (AST/SGOT) 12L, Alanine Aminotransferase (ALT/SGPT) 19, Alkaline Phosphatase 65, Pro-B-Type Natriuretic Peptide 426H, Total Protein 7.2, Albumin 3.1L, Globulin 4.1, Albumin/Globulin Ratio 0.8L Height (Feet): 5 Height (Inches): 3.00 Weight (Pounds): 220 General Appearance: alert EENT: normal ENT inspection Neck: normal alignment Cardiovascular: normal peripheral pulses, normal rate, regular rhythm Respiratory/Chest: decreased breath sounds Abdomen: normal bowel sounds, non tender, soft Extremities: normal inspection Edema: no edema noted Arm (L), no edema noted Arm (R), no edema noted Leg (L), no edema noted Leg (R), no edema noted Pedal (L), no edema noted Pedal (R), no edema noted Generalized Neurologic: responsive, motor weakness Skin: normal pigmentation, warm/dry IFTIKHAR TARIQ Sep 23, 2017 14:54
[2017-09-23 16:00] VITALS: BP 144/76
--- NOTE | 2017-09-23 16:36 | Pulmonology Progress Note ---
Assessment/Plan Problems: (1) COPD exacerbation (2) Chronic pain (3) Hypothyroidism Assessment/Plan respiratory treatment IV steroids, change to po Prednisone iv abx titrate fio2 to sat of 92% check electrolytes pain management symptomatic treatment dc planning for am Subjective ROS Limited/Unobtainable: No Interval Events: improving, less short ness of breath Allergies: Coded Allergies: No Known Allergies (Unverified , 05/26/12) Objective Last 24 Hour Vital Signs Date Time Temp Pulse Resp B/P (MAP) Pulse Ox O2 Delivery O2 Flow Rate FiO2 09/23/17 16:00 97.7 73 18 144/76 100 97.7 09/23/17 12:00 96.4 66 18 128/59 99 96.4 09/23/17 12:00 96.4 66 18 128/59 99 Room Air 96.4 09/23/17 08:33 118/71 09/23/17 08:01 Room Air 09/23/17 08:00 97.6 78 20 147/90 100 97.6 09/23/17 07:08 76 18 Room Air 21 09/23/17 04:00 Room Air 09/23/17 04:00 97.5 69 18 118/71 100 97.5 09/23/17 02:23 97.6 09/23/17 01:53 97.6 09/23/17 00:00 97.6 87 18 147/82 96 97.6 09/23/17 00:00 Room Air 09/22/17 21:41 84 17 Room Air 21 09/22/17 20:02 97.6 88 18 135/83 97 97.6 Intake and Output 09/22/17 09/23/17 19:00 07:00 Intake Total 600 ml 372.5 ml Balance 600 ml 372.5 ml Intake Oral 600 ml 345 ml IV Total 27.5 ml # Voids 4 3 Objective General Appearance: WD/WN Lines, tubes and drains: peripheral HEENT: normocephalic, atraumatic Neck: non-tender, normal alignment Respiratory/Chest: chest wall non-tender, lungs clear, less wheezing Breasts: no masses Cardiovascular/Chest: normal peripheral pulses, normal rate, no JVD Abdomen: normal bowel sounds, non tender Genitourinary/Rectal: normal genital exam Extremities: normal range of motion, non-tender Skin Exam: normal pigmentation, warm/dry Microbiology Date/Time Source Procedure Growth Status 09/20/17 19:05 Blood Blood Culture - Preliminary NO GROWTH AFTER 48 HOURS Resulted 09/20/17 19:00 Blood Blood Culture - Preliminary NO GROWTH AFTER 48 HOURS Resulted Laboratory Tests 09/23/17 05:10: White Blood Count 15.8H, Red Blood Count 3.61L, Hemoglobin 10.2L, Hematocrit 31.2L, Mean Corpuscular Volume 87, Mean Corpuscular Hemoglobin 28.2, Mean Corpuscular Hemoglobin Concent 32.6, Red Cell Distribution Width 13.9, Platelet Count 243, Mean Platelet Volume 8.3, Neutrophils (%) (Auto) 83.4H, Lymphocytes ( %) (Auto) 8.9L, Monocytes (%) (Auto) 7.5, Eosinophils (%) (Auto) 0.0, Basophils (%) (Auto) 0.2, Sodium Level 145, Potassium Level 4.1, Chloride Level 110H, Carbon Dioxide Level 25, Anion Gap 10, Blood Urea Nitrogen 25H, Creatinine 1.2, Estimat Glomerular Filtration Rate 53.9, Glucose Level 117H, Calcium Level 8.5, Total Bilirubin 0.3, Aspartate Amino Transf (AST/SGOT) 12L, Alanine Aminotransferase (ALT/SGPT) 19, Alkaline Phosphatase 65, Pro-B-Type Natriuretic Peptide 426H, Total Protein 7.2, Albumin 3.1L, Globulin 4.1, Albumin/Globulin Ratio 0.8L Current Medications Medications (Trade) Dose Ordered Sig/Catalino Route PRN Reason Start Time Stop Time Status Last Admin Dose Admin Albuterol/ Ipratropium (Albuterol/ Ipratropium) 3 ml Q4H PRN HHN dyspnea 09/22/17 19:15 09/26/17 07:14 Dextrose (Dextrose 50%) STAT PRN IV Hypoglycemia 09/23/17 07:15 10/21/17 07:14 Fluticasone Propionate (Flonase) 2 spray Q12HR NASAL 09/22/17 21:00 10/22/17 20:59 09/23/17 08:27 Heparin Sodium (Porcine) (Heparin 5000 units/ml) 5,000 units EVERY 12 HOURS SUBQ 09/22/17 21:00 10/21/17 08:59 09/23/17 08:41 Lorazepam (Ativan 2mg/ml 1ml) 0.5 mg Q4H PRN IV For Anxiety 09/22/17 19:15 09/28/17 07:14 Losartan Potassium (Cozaar) 100 mg DAILY ORAL 09/23/17 09:00 10/21/17 08:59 09/23/17 08:33 Methocarbamol (Robaxin) 750 mg TID ORAL 09/22/17 18:00 10/21/17 08:59 09/23/17 13:07 Methylprednisolone Sodium Succinate (Solu-MEDROL) 60 mg DAILY IV 09/23/17 09:00 10/21/17 11:59 09/23/17 08:33 Morphine Sulfate (Morphine Sulfate) 2 mg Q4H PRN IVP severe pain 7-10 09/22/17 19:15 09/28/17 07:14 09/23/17 01:53 Naproxen (Naprosyn) 500 mg TWICE A DAY ORAL 09/22/17 18:00 10/21/17 08:59 09/23/17 08:28 Nitroglycerin (Ntg) 0.4 mg Q5M X 3 DOSES PRN SL Prn Chest Pain 09/22/17 15:30 10/21/17 07:14 Ondansetron HCl (Zofran) 4 mg Q6H PRN IVP Nausea & Vomiting 09/22/17 19:15 10/21/17 07:14 09/23/17 02:04 Piperacillin Sod/ Tazobactam Sod 3.375 gm/Sodium Chloride 110 ml @ 27.5 mls/hr Q8HR@0200,1000,1800 IVPB 09/22/17 18:00 09/28/17 09:59 09/23/17 09:40 Promethazine HCl/ Codeine (Phenergan with Codeine) 5 ml Q6H PRN ORAL cough 09/22/17 19:15 10/21/17 07:14 Temazepam (Restoril) 15 mg HSPRN PRN ORAL Insomnia 09/22/17 22:30 09/29/17 22:29 09/22/17 22:45 Theophylline (Diogo-Dur) 100 mg EVERY 12 HOURS ORAL 09/22/17 21:00 10/21/17 08:59 09/23/17 08:28 Navdeep Horne MD Sep 23, 2017 16:36
--- NOTE | 2017-09-23 17:01 | Neurology Progress Note ---
Interim History Interim History ROS Limited/Unobtainable: No Objective Physical Exam Last Vital Signs Date Time Temp Pulse Resp B/P (MAP) Pulse Ox O2 Delivery O2 Flow Rate FiO2 09/23/17 16:00 97.7 73 18 144/76 100 97.7 09/23/17 12:00 Room Air 09/23/17 07:08 21 Laboratory Tests Test 09/23/17 05:10 White Blood Count 15.8 K/UL (4.8-10.8) H Red Blood Count 3.61 M/UL (4.20-5.40) L Hemoglobin 10.2 G/DL (12.0-16.0) L Hematocrit 31.2 % (37.0-47.0) L Mean Corpuscular Volume 87 FL (80-99) Mean Corpuscular Hemoglobin 28.2 PG (27.0-31.0) Mean Corpuscular Hemoglobin Concent 32.6 G/DL (32.0-36.0) Red Cell Distribution Width 13.9 % (11.6-14.8) Platelet Count 243 K/UL (150-450) Mean Platelet Volume 8.3 FL (6.5-10.1) Neutrophils (%) (Auto) 83.4 % (45.0-75.0) H Lymphocytes (%) (Auto) 8.9 % (20.0-45.0) L Monocytes (%) (Auto) 7.5 % (1.0-10.0) Eosinophils (%) (Auto) 0.0 % (0.0-3.0) Basophils (%) (Auto) 0.2 % (0.0-2.0) Sodium Level 145 MMOL/L (136-145) Potassium Level 4.1 MMOL/L (3.5-5.1) Chloride Level 110 MMOL/L (98-107) H Carbon Dioxide Level 25 MMOL/L (21-32) Anion Gap 10 mmol/L (5-15) Blood Urea Nitrogen 25 mg/dL (7-18) H Creatinine 1.2 MG/DL (0.55-1.30) Estimat Glomerular Filtration Rate 53.9 mL/min (>60) Glucose Level 117 MG/DL (74-106) H Calcium Level 8.5 MG/DL (8.5-10.1) Total Bilirubin 0.3 MG/DL (0.2-1.0) Aspartate Amino Transf (AST/SGOT) 12 U/L (15-37) L Alanine Aminotransferase (ALT/SGPT) 19 U/L (12-78) Alkaline Phosphatase 65 U/L (46-116) Pro-B-Type Natriuretic Peptide 426 pg/mL (0-125) H Total Protein 7.2 G/DL (6.4-8.2) Albumin 3.1 G/DL (3.4-5.0) L Globulin 4.1 g/dL Albumin/Globulin Ratio 0.8 (1.0-2.7) L Impression/Recommendations Problems: (1) Tension headache (2) sleep disorder. r/o sleep apnea Status: unchanged Recommendations #[id number] JUVENCIO CEDEÑO Sep 23, 2017 17:01
[2017-09-23 19:51] VITALS: BP 136/76
--- NOTE | 2017-09-23 20:16 | Cardiology Report ---
APPROVED REPORT EKG Measurement Heart [id number] Normal sinus rhythm Normal ECG
[2017-09-23] MEDS: Albuterol/Ipratropium 3ml neb HHN PRN (20:59)
[2017-09-24] VITALS: BP 128/71
--- NOTE | 2017-09-24 01:01 | Consultation ---
DATE OF CONSULTATION: 09/23/2017 NEUROLOGICAL CONSULTATION CONSULTING PHYSICIAN: Jerry Nj M.D. REQUESTING PHYSICIAN: Santosh Reyes D.O. HISTORY OF PRESENT ILLNESS: This is a 67-year-old female, seen in neurological consultation to evaluate increasing severe headaches. According to the patient, she never had headaches in the past, but in the last couple of weeks, she started to develop intermittent headaches predominantly at nighttime, describing her pain as sharp bitemporal occipital headache, on a scale of 1 to 10 is about 4, and is accompanied by nausea. The patient is quite concerned with new event. The patient is currently undergoing treatment for exacerbation of COPD addressing issue of chronic pain and hypothyroidism. Laboratory work with mild anemia, hemoglobin 11.1 and hematocrit 34.3. Normal coagulation. Urinalysis, 5 to 10 wbc's. Chemistry panel on admission was normal although refused study with BNP 426 and BUN 25. Her chest x-ray, no acute process. PAST MEDICAL HISTORY: The patient has a history of bilateral knee replacement, hypertension, cardiomyopathy, COPD, bronchial asthma, and morbid obesity. In addition, the patient now informs me that in the last six months, she has severe insomnia, sleeping from 9 p.m. to 12 p.m. Only then, would stay in bed, not sleeping whole night. MEDICATIONS: The patient is now maintained on treatment with prednisone, Phenergan, temazepam p.r.n., theophylline, Zofran, nitroglycerin, naproxen 500 mg b.i.d., Robaxin 750 mg t.i.d., subcutaneous heparin, and albuterol. ALLERGIES: None reported. SOCIAL HISTORY: Lives with her grandchildren. She provides herself with all activities of daily living. No alcohol. No drug abuse. Nonsmoker. REVIEW OF SYMPTOMS: Generalized aches and pains especially low back pain, insomnia, now moderate headaches. Denies chest pain or palpitations. No respiratory problems. Denies depression or anxiety. PHYSICAL EXAMINATION: GENERAL: A well-developed, moderately obese female, not in acute distress, lying comfortably in bed. VITAL SIGNS: Stable. She is afebrile. HEENT: Head, normocephalic. No evidence of trauma. Eyes, ears, and throat are clear. NECK: Supple. No meningeal signs. There is no evidence of TMJ abnormality. MENTAL STATUS: She is full alert and oriented x3 with no evidence of aphasia or apraxia. Cognitive function normal. CRANIAL NERVE II: Pupils both responding to light and accommodation. Extraocular movement intact. No nystagmus. CRANIAL NERVE V: Normal corneal responses. CRANIAL NERVE VII: No facial asymmetry. CRANIAL NERVE VIII: Normal hearing. CRANIAL NERVES IX THROUGH XII: Within normal limits. MOTOR EXAMINATION: Normal muscle tone and strength 5/5 in all extremities. No involuntary movement. Deep tendon reflexes 1+ and symmetric with downgoing toes on both sides. SENSORY EXAM: Normal to pinprick and light touch. GAIT: Slow, but stable. IMPRESSION: 1. Cephalgia, muscle contraction type. 2. Sleeping disorder. 3. Chronic obstructive pulmonary disease exacerbation. 4. Chronic low back pain. 5. Obesity. RECOMMENDATIONS: 1. The patient is started on melatonin 3 mg at bedtime. 2. Continue with current treatment including nonsteroidal and muscle relaxants. 3. Continue with attempting to maintain normal sleep. 4. Cephalgia will respond to use of muscle relaxants and Tylenol. Thank you for allowing me to see this interesting patient in neurological consultation. Jerry Nj M.D. DR: IAN JOB#: [id number] CC:
[2017-09-24] MEDS: Piperacillin/Tazobactam 3.375 GM in NS 110 ML IVPB SCH ×2 (02:18→09:35)
[2017-09-24 04:00] VITALS: BP 129/74
[2017-09-24 07:26] LABS: BASOPHILS % (AUTO) 0.4 % (0.0-2.0); EOSINOPHILS % (AUTO) 0.1 % (0.0-3.0); HEMATOCRIT 31.2 % (37.0-47.0); HEMOGLOBIN 10.1 G/DL (12.0-16.0); LYMPHOCYTES % (AUTO) 16.3 % (20.0-45.0); MEAN CORPUSCULAR VOLUME 87 FL (80-99); MONOCYTES % (AUTO) 9.2 % (1.0-10.0); PLATELET COUNT 248 K/UL (150-450); RED BLOOD COUNT 3.59 M/UL (4.20-5.40); RED CELL DISTRIBUTION WIDTH 14.2 % (11.6-14.8); WHITE BLOOD COUNT 12.4 K/UL (4.8-10.8)
[2017-09-24 07:43] LABS: ANION GAP 9 mmol/L (5-15); BLOOD UREA NITROGEN 26 mg/dL (7-18); CALCIUM 8.3 MG/DL (8.5-10.1); CARBON DIOXIDE 26 MMOL/L (21-32); CHLORIDE 110 MMOL/L (98-107); CREATININE 1.1 MG/DL (0.55-1.30); POTASSIUM 4.3 MMOL/L (3.5-5.1); SODIUM 145 MMOL/L (136-145)
[2017-09-24 08:00] VITALS: BP 107/56
[2017-09-24] MEDS: Methocarbamol 750mg tab ORAL SCH ×2 (09:32→12:57)
[2017-09-24] MEDS: Naproxen 500mg tab ORAL SCH (09:32)
[2017-09-24] MEDS: Theophylline ER 100mg ORAL SCH (09:32)
[2017-09-24] MEDS: Losartan 50mg tab ORAL SCH (09:33)
[2017-09-24] MEDS: Heparin 5000 units/ml inj SUBQ SCH (09:34)
[2017-09-24] MEDS: Flonase Nasal Inhaler 16gm NASAL SCH (10:42)
[2017-09-24 12:00] VITALS: BP 136/83
--- NOTE | 2017-09-24 14:41 | General Progress Note ---
Assessment/Plan Problem List: (1) Asthma ICD Codes: J45.909 - Unspecified asthma, uncomplicated SNOMED: 063420094 (2) HTN (hypertension) ICD Codes: I10 - Essential (primary) hypertension SNOMED: 54883956 (3) Anemia ICD Codes: D64.9 - Anemia, unspecified SNOMED: 198063430 (4) SOB (shortness of breath) ICD Codes: R06.02 - Shortness of breath SNOMED: 284412080 (5) COPD exacerbation ICD Codes: J44.1 - Chronic obstructive pulmonary disease with (acute) exacerbation SNOMED: 947597921 (6) Chronic pain ICD Codes: G89.29 - Other chronic pain SNOMED: 05251210 (7) UTI (urinary tract infection) ICD Codes: N39.0 - Urinary tract infection, site not specified SNOMED: 13329345 (8) Headache ICD Codes: R51 - Headache SNOMED: 06312026 Status: stable, progressing, tolerating diet Assessment/Plan o2 pulm tx taper steroids dc home if pulm neuro clear Subjective Constitutional: Reports: weakness Allergies: Coded Allergies: No Known Allergies (Unverified , 05/26/12) All Systems: reviewed and negative except above Subjective c/o head ache and sl sob Objective Last 24 Hour Vital Signs Date Time Temp Pulse Resp B/P (MAP) Pulse Ox O2 Delivery O2 Flow Rate FiO2 09/24/17 12:00 97.4 66 20 136/83 99 97.4 09/24/17 10:31 97.5 09/24/17 09:33 107/56 09/24/17 09:32 97.5 09/24/17 08:00 97.5 79 18 107/56 100 97.5 09/24/17 07:25 74 16 Room Air 21 09/24/17 04:00 Room Air 09/24/17 04:00 98.1 75 18 129/74 98 98.1 09/24/17 00:00 Room Air 09/24/17 00:00 98.2 77 18 128/71 98 98.2 09/23/17 21:06 74 18 95 Room Air 21 09/23/17 20:58 74 18 95 Room Air 21 09/23/17 20:58 21 09/23/17 20:00 Room Air 09/23/17 19:51 98.3 74 18 136/76 95 98.3 09/23/17 19:49 71 18 Room Air 21 09/23/17 16:00 97.7 73 18 144/76 100 97.7 Intake and Output 09/23/17 09/24/17 19:00 07:00 Intake Total 967.5 ml 572.5 ml Balance 967.5 ml 572.5 ml Intake Oral 830 ml 380 ml IV Total 137.5 ml 192.5 ml # Voids 5 2 Laboratory Tests 09/24/17 05:50: White Blood Count 12.4H, Red Blood Count 3.59L, Hemoglobin 10.1L, Hematocrit 31.2L, Mean Corpuscular Volume 87, Mean Corpuscular Hemoglobin 28.1, Mean Corpuscular Hemoglobin Concent 32.4, Red Cell Distribution Width 14.2, Platelet Count 248, Mean Platelet Volume 8.7, Neutrophils (%) (Auto) 74.0, Lymphocytes (% ) (Auto) 16.3L, Monocytes (%) (Auto) 9.2, Eosinophils (%) (Auto) 0.1, Basophils (%) (Auto) 0.4, Sodium Level 145, Potassium Level 4.3, Chloride Level 110H, Carbon Dioxide Level 26, Anion Gap 9, Blood Urea Nitrogen 26H, Creatinine 1.1, Estimat Glomerular Filtration Rate 59.8, Glucose Level 111H, Calcium Level 8.3L Height (Feet): 5 Height (Inches): 3.00 Weight (Pounds): 220 General Appearance: alert EENT: normal ENT inspection Neck: normal alignment Cardiovascular: normal peripheral pulses, normal rate, regular rhythm Respiratory/Chest: chest wall non-tender, lungs clear, normal breath sounds Abdomen: normal bowel sounds, non tender, soft Extremities: normal inspection Edema: no edema noted Arm (L), no edema noted Arm (R), no edema noted Leg (L), no edema noted Leg (R), no edema noted Pedal (L), no edema noted Pedal (R), no edema noted Generalized Neurologic: responsive, motor weakness Skin: normal pigmentation, warm/dry IFTIKHAR TARIQ Sep 24, 2017 14:41
[2017-09-24] MEDS ORDERED: PROMETHAZINE-C118 M1 ORAL (15:35)
[2017-09-24] MEDS ORDERED: FLUTICASONE PRO16 G1 NASAL (15:36)
[2017-09-24] MEDS ORDERED: GABAPENTIN300 MG ORAL (15:37)
[2017-09-24] MEDS ORDERED: DUONEB 0.5-3(2.53 ML HHN (15:39)
[2017-09-24] MEDS ORDERED: LOSARTAN POTASS50 MG ORAL (15:39)
[2017-09-24] MEDS ORDERED: METHOCARBAMOL750 MG ORAL (15:41)
[2017-09-24] MEDS ORDERED: NITROSTAT0.4 M1 SL (15:43)
[2017-09-24] MEDS ORDERED: PREDNISONE20 M1 PO (15:45)
[2017-09-24] MEDS ORDERED: TEMAZEPAM15 MG ORAL (15:46)
[2017-09-24] MEDS ORDERED: THEOPHYLLINE400 MG PO (15:48)
[2017-09-24] MEDS ORDERED: THEOPHYLLINE A100 MG ORAL (15:48)
[2017-09-24] MEDS: Albuterol/Ipratropium 3ml neb HHN PRN (16:07)
--- NOTE | 2017-09-24 22:33 | Pulmonology Progress Note ---
Assessment/Plan Problems: (1) COPD exacerbation (2) Chronic pain (3) Hypothyroidism Assessment/Plan respiratory treatment change to po Prednisone titrate fio2 to sat of 92% check electrolytes pain management symptomatic treatment dc planning for today Subjective ROS Limited/Unobtainable: No Interval Events: improivng, less short of breath Allergies: Coded Allergies: No Known Allergies (Unverified , 05/26/12) Objective Last 24 Hour Vital Signs Date Time Temp Pulse Resp B/P (MAP) Pulse Ox O2 Delivery O2 Flow Rate FiO2 09/24/17 16:18 71 18 95 Room Air 21 09/24/17 16:07 70 16 95 Room Air 21 09/24/17 12:00 97.4 66 20 136/83 99 97.4 09/24/17 10:31 97.5 09/24/17 09:33 107/56 09/24/17 09:32 97.5 09/24/17 08:00 97.5 79 18 107/56 100 97.5 09/24/17 07:25 74 16 Room Air 09/24/17 04:00 Room Air 09/24/17 04:00 98.1 75 18 129/74 98 98.1 09/24/17 00:00 Room Air 09/24/17 00:00 98.2 77 18 128/71 98 98.2 Intake and Output 09/23/17 09/24/17 19:00 07:00 Intake Total 967.5 ml 572.5 ml Balance 967.5 ml 572.5 ml Intake Oral 830 ml 380 ml IV Total 137.5 ml 192.5 ml # Voids 5 2 Objective General Appearance: WD/WN Lines, tubes and drains: peripheral HEENT: normocephalic, atraumatic Neck: non-tender, normal alignment Respiratory/Chest: chest wall non-tender, lungs clear, less wheezing Breasts: no masses Cardiovascular/Chest: normal peripheral pulses, normal rate, no JVD Abdomen: normal bowel sounds, non tender Genitourinary/Rectal: normal genital exam Extremities: normal range of motion, non-tender Skin Exam: normal pigmentation, warm/dry Laboratory Tests 09/24/17 05:50: White Blood Count 12.4H, Red Blood Count 3.59L, Hemoglobin 10.1L, Hematocrit 31.2L, Mean Corpuscular Volume 87, Mean Corpuscular Hemoglobin 28.1, Mean Corpuscular Hemoglobin Concent 32.4, Red Cell Distribution Width 14.2, Platelet Count 248, Mean Platelet Volume 8.7, Neutrophils (%) (Auto) 74.0, Lymphocytes (% ) (Auto) 16.3L, Monocytes (%) (Auto) 9.2, Eosinophils (%) (Auto) 0.1, Basophils (%) (Auto) 0.4, Sodium Level 145, Potassium Level 4.3, Chloride Level 110H, Carbon Dioxide Level 26, Anion Gap 9, Blood Urea Nitrogen 26H, Creatinine 1.1, Estimat Glomerular Filtration Rate 59.8, Glucose Level 111H, Calcium Level 8.3L Navdeep Horne MD Sep 24, 2017 22:32
--- NOTE | 2017-09-25 10:16 | Discharge Summary ---
Discharge Summary Hospital Course Date of Admission Sep 20, 2017 at 19:13 Date of Discharge Sep 24, 2017 at 16:36 Admitting Diagnosis COPD HPI Soledad Strauss is a 67 year old female who was admitted on Sep 20, 2017 at 19: 13 for Chronic Obstructive Pulmonary Disease Hospital Course [id number] Discharge Discharge Disposition Patient was discharged to Home (01) Naima Santana NP Sep 25, 2017 10:16
--- NOTE | 2017-09-26 00:30 | Discharge Summary 2 SIG ---
DATE OF ADMISSION: 09/20/2017 DATE OF DISCHARGE: 09/24/2017 CONSULTANTS: 1. Navdeep Horne M.D. 2. Jerry Nj M.D. BRIEF HOSPITAL COURSE: The patient is a 67-year-old female, who lives at home, presented to ED complaining of shortness of breath with wheezing. She has been using nebulizer and symptoms apparently gotten worse. She denied any fevers, but sometimes break out in sweats. She denied chest pain. She has cough that has been nonproductive. There was no nausea. No vomiting. No dysuria and describes this symptom as worse that she has ever had. She has been on and off steroids for some time and had difficulty filling her prescriptions recently because of cost and insurance. On evaluation at ED, blood work did not show any leukocytosis. However, with the eosinophilia, chest x-ray done showed no acute process. EKG was in normal sinus rhythm with no evidence of acute injury. She was given nebulizer treatments. However, she continued to have tightness in the chest. She was then admitted to telemetry for acute COPD exacerbation. She was started on IV Solu-Medrol and IV antibiotics. She was given respiratory treatment and pain management. She underwent neurological evaluation with Dr. Nj as the patient was having increased severe headaches. Headaches were intermittent and predominantly at nighttime, described to be bitemporal and occipital accompanied by nausea. Per neurologist's evaluation, the patient has cephalalgia, muscle contraction type and sleeping disorder. She was started on melatonin 3 mg nightly and was given muscle relaxants and nonsteroidal pain medications. She was eventually tapered off Solu-Medrol and was transitioned to p.o. prednisone. She was saturating well on room air. She was then discharged home. FINAL DIAGNOSES: 1. Acute chronic obstructive pulmonary disease exacerbation. 2. Hypothyroidism. 3. Chronic pain. 4. Headache cephalalgia type. 5. Sleeping disorder. 6. Low back pain. 7. Obesity. 8. Urinary tract infection. 9. Asthma. DISPOSITION: The patient was discharged home. DISCHARGE MEDICATIONS: Refer to medication list. DISCHARGE INSTRUCTIONS: Follow up as outpatient in a week. Santosh Reyes D.O. I have been assigned to dictate discharge summary on this account and I was not involved in the patient's management. Naima Santana N.P. DR: Dayday JOB#: [id number] CC:
== END 2017-09-24 16:36 | disposition home or self-care (01) | DRG 191 ==
LOC: EMR 19:10 → 2E 19:13 → EDBEDREQ 09-21 12:31 → 4W 09-22 15:32
DX: J44.1 Chronic obstructive pulmonary disease with (acute) exacerbation (principal); N39.0 Urinary tract infection, site not specified; I10 Essential (primary) hypertension; E03.9 Hypothyroidism, unspecified; G89.29 Other chronic pain; D64.9 Anemia, unspecified; G44.209 Tension-type headache, unspecified, not intractable; G47.9 Sleep disorder, unspecified; E66.9 Obesity, unspecified; M54.5 Low back pain; Z68.39 Body mass index [BMI] 39.0-39.9, adult
CPT/HCPCS: 36415; 71045; 80048; 80053; 81003; 82550; 83605; 83880; 84484; 85007; 85025; 85610; 85730; 87040; 93005; 94640; 94664; 99285; J2405; J7620

== ENCOUNTER 2017-12-06 00:06 | Emergency (ER) | payer MEDICARE, BC ==
[~2017-12-06] VITALS: Ht 160 cm; Wt 108.0 kg
[~2017-12-06 00:06] MED LIST changes: +COZAAR25 MG ORAL; +DUONEB 0.5-3(2.53 ML HHN; +FLUTICASONE PRO16 G1 NASAL; +GABAPENTIN300 MG ORAL; +LOSARTAN POTASS50 MG ORAL; +METHOCARBAMOL750 MG ORAL; +NITROSTAT0.4 M1 SL; +PREDNISONE20 M1 PO; +PROMETHAZINE-C118 M1 ORAL; +TEMAZEPAM15 MG ORAL; +THEOPHYLLINE A100 MG ORAL; +THEOPHYLLINE400 MG PO; +VITAMIN D400 INTLU ORAL
[2017-12-06 00:22] VITALS: BP 117/61
[2017-12-06] MEDS ORDERED: Albuterol/Ipratropium 3ml neb HHN ONE (00:45)
[2017-12-06] MEDS ORDERED: PREDNISONE20 MG ORAL (01:01)
--- NOTE | 2017-12-06 01:02 | Emergency Room Report ---
History of Present Illness General Chief Complaint: Dyspnea/Respdistress Source: Patient Present Illness HPI Is a 67-year-old female with a history of asthma/COPD. She presents with chief complaint of shortness of breath. Onset today when she went outside. She has a lot of allergies she didn't it triggered. Better with her breathing treatment. Worse with exertion. No fever chills but no nausea no vomiting. Coughing is nonproductive in nature. No other sick contact. Last steroid was 2 to 3 months ago. Allergies: Coded Allergies: No Known Allergies (Unverified , 05/26/12) Patient History Past Medical History: see triage record, old chart reviewed Past Surgical History: none Pertinent Family History: none Social History: Denies: smoking Now: No Immunizations: other Reviewed Nursing Documentation: PMH: Agreed; PSxH: Agreed Nursing Documentation-PMH Past Medical History: No History, Except For Hx Cardiac Problems: Yes Hx Hypertension: Yes Hx Pacemaker: No Hx Asthma: Yes Hx COPD: Yes Hx Diabetes: No Hx Cancer: No Hx Gastrointestinal Problems: No Hx Neurological Problems: No - Knee surgery, right shoulder replacement Review of Systems Eye: Denies: eye pain, blurred vision ENT: Denies: ear pain, nose congestion, throat swelling Respiratory: Reports: cough, shortness of breath Cardiovascular: Denies: chest pain, palpitations Gastrointestinal: Denies: abdominal pain, diarrhea, nausea, vomiting Musculoskeletal: Denies: back pain, joint pain Skin: Denies: rash Neurological: Denies: headache, numbness Endocrine: Denies: increased thirst, increased urine Hematologic/Lymphatic: Denies: easy bruising All Other Systems: negative except mentioned in HPI Physical Exam Vital Signs Date Time Temp Pulse Resp B/P (MAP) Pulse Ox O2 Delivery O2 Flow Rate FiO2 12/06/17 00:16 97.6 101 18 117/61 95 Room Air 97.5 Sp02 EP Interpretation: reviewed, normal General Appearance: well appearing, no apparent distress, alert Head: normocephalic, atraumatic Eyes: bilateral eye PERRL, bilateral eye EOMI ENT: hearing grossly normal, normal pharynx Neck: full range of motion, supple, no meningismus Respiratory: chest non-tender, lungs clear, normal breath sounds, other - coughing with inspiration Cardiovascular #1: regular rate, rhythm, no murmur Gastrointestinal: normal bowel sounds, non tender, no mass, no organomegaly, no bruit, non-distended Musculoskeletal: back normal, gait/station normal, normal range of motion Psychiatric: mood/affect normal Skin: warm/dry Medical Decision Making Diagnostic Impression: Primary Impression: Asthma exacerbation Qualified Codes: J45.901 - Unspecified asthma with (acute) exacerbation ER Course Patient presents with coughing and possible asthma exacerbation. No evidence of ACS, PE, dissection to name a few. We'll discharge home. Better after nebulizer treatment. Last Vital Signs Date Time Temp Pulse Resp B/P (MAP) Pulse Ox O2 Delivery O2 Flow Rate FiO2 12/06/17 00:54 101 18 95 Room Air 12/06/17 00:22 97.5 117/61 97.5 Status: improved Disposition: HOME, SELF-CARE Condition: Stable Scripts Prednisone* (PREDNISONE*) 20 Mg Tablet 60 MG ORAL DAILY, #12 TAB Prov: GIOVANA MANZO M.D. 12/06/17 Referrals: NOT CHOSEN IPA/,REFERRING (PCP) Additional Instructions: Follow-up with your [facility] in 2 to 3 days. Return if symptom worsen. GIOVANA MANZO M.D. Dec 06, 2017 01:02
[2017-12-06 01:09] VITALS: BP 117/61
[2017-12-06] MEDS ORDERED: ZITHROMAX250 MG ORAL (14:58)
== END 2017-12-06 01:11 | disposition home or self-care (01) ==
LOC: EMR 00:31
DX: J45.901 Unspecified asthma with (acute) exacerbation (principal); J44.9 Chronic obstructive pulmonary disease, unspecified; I10 Essential (primary) hypertension
CPT/HCPCS: 94640; 99283; J7512; J7620

== ENCOUNTER 2017-12-06 12:29 | Emergency (ER) | payer MEDICARE, BC ==
[~2017-12-06] VITALS: Ht 160 cm; Wt 108.0 kg
[~2017-12-06 12:29] MED LIST changes: +PREDNISONE20 MG ORAL
--- NOTE | 2017-12-06 12:58 | Emergency Room Report ---
History of Present Illness General Chief Complaint: Asthma Source: Patient Present Illness HPI 67-year-old female patient presents to ER complaining of asthma symptoms. Patient reports that she was seen in ER last night for similar symptoms and treated with breathing treatment. Patient reports that she went to go fill her asthma prescriptions today at the pharmacy but was taking "too long", says that she was being to have breathing problems and decided to come back to ER for another breathing treatment. patient reports history of asthma. Denies chest pain or other acute symptoms at this time. Denies fever, abdominal pain, vision changes. Reports hx of COPD, denies hx of smoking. Allergies: Coded Allergies: No Known Allergies (Unverified , 05/26/12) Patient History Past Medical History: see triage record Reviewed Nursing Documentation: PMH: Agreed; PSxH: Agreed Nursing Documentation-PMH Past Medical History: No History, Except For Hx Cardiac Problems: Yes Hx Hypertension: Yes Hx Pacemaker: No Hx Asthma: Yes Hx COPD: Yes Hx Diabetes: No Hx Cancer: No Hx Gastrointestinal Problems: No Hx Neurological Problems: No - Knee surgery, right shoulder replacement Review of Systems All Other Systems: negative except mentioned in HPI Physical Exam Vital Signs Date Time Temp Pulse Resp B/P (MAP) Pulse Ox O2 Delivery O2 Flow Rate FiO2 12/06/17 12:36 97.6 111 20 137/68 94 Room Air 97.5 Sp02 EP Interpretation: reviewed, normal General Appearance: well appearing, no apparent distress, alert, GCS 15, non- toxic Head: normocephalic, atraumatic Eyes: bilateral eye normal inspection, bilateral eye PERRL ENT: hearing grossly normal, normal pharynx, no angioedema, normal voice, uvula midline, moist mucus membranes Neck: full range of motion Respiratory: no rhonchi, no respiratory distress, no accessory muscle use, no wheezing, decreased breath sounds, speaking full sentences Cardiovascular #1: regular rate, rhythm, no edema Musculoskeletal: back normal, digits/nails normal, gait/station normal, normal range of motion, non-tender, no calf tenderness, Osei's Sign negative Neurologic: alert, oriented x3, responsive, motor strength/tone normal, sensory intact Psychiatric: mood/affect normal Skin: no rash Medical Decision Making PA Attestation Dr. Lima is my supervising Physician whom patient management has been discussed with. Diagnostic Impression: Primary Impression: Asthma attack Additional Impression: History of COPD ER Course Pt presents to ED c/o asthma symptoms. DDX considered but are not limited to asthma, viral URI, influenza, bronchitis. Low suspicion for PE per Well's criteria, low suspicion for ACS. On PE, chest is TTP; chest pain likely musculoskeletal in nature secondary to cough, does not require cardiac workup at this time. Patient instructed to take NSAIDs as needed for pain symptoms. VITAL SIGNS are WNL, patient is afebrile. Ordered breathing treatment and medication. ER COURSE Albuterol/Atrovent breathing treatment provided. Following treatment patient states no longer having difficulty with breathing, no audible wheezing. Patient reports feeling better. Patient is resting comfortably in no acute distress. Patient afebrile, chest x-ray negative for acute disease, consistent with previous chest x-ray, low suspicion for pneumonia at this time. Due to patient history of COPD, will provide antibiotic. Informed patient to continue taking medication as prescribed at previous ER visit. Does not require steroids at this time, has prescription for steroids ready for picker feeder at pharmacy. Followup with PCP for further treatment and management, discuss further referral at that time. ER precautions given. Patient reports has albuterol inhaler and nebulized albuterol solution, does not require Rx at this time. DISCHARGE: -Rx provided for Z-pack At this time pt is stable for d/c to home. Patient is resting comfortably in no acute distress, nontoxic appearing, able to answer questions without difficulty. Patient to take medications as instructed Will provide with patient care instructions and any necessary prescriptions. Care plan and follow-up instructions provided. Patient instructed to follow-up with primary care provider in 3 - 5 days. Patient questions asked and answered. Patient reports understanding and agreement to treatment plan. ER precautions given. Patient instructed to return to ER immediately for any new or worsening of symptoms including but not limited to increasing SOB, persistent fever. - Please note that this Emergency Department Report was dictated using [employer] c[employer] technology software, occasionally this can lead to erroneous entry secondary to interpretation by the dictation equipment. Chest X-Ray Diagnostic Results Chest X-Ray Diagnostic Results : Chest X-Ray Ordered: Yes # of Views/Limited/Complete: 1 View Indication: Chest Pain EP Interpretation: Yes PA Xray: Interpretation reviewed, by supervising MD, and agrees with findings. Interpretation: no consolidation, no effusion, no pneumothorax Impression: No acute disease PA Scribe Text Asad Floyd PA-C Last Vital Signs Date Time Temp Pulse Resp B/P (MAP) Pulse Ox O2 Delivery O2 Flow Rate FiO2 12/06/17 12:36 97.6 111 20 137/68 94 Room Air 97.5 Status: improved Disposition: HOME, SELF-CARE Condition: Stable Scripts Azithromycin* (ZITHROMAX*) 250 Mg Tablet 250 MG ORAL DAILY, #6 TAB 0 Refills Take two tables once daily for 1 day, then one tablet once daily for 4 days. Prov: Kirt Floyd 12/06/17 Patient Instructions: Asthma, Adult, Chronic Obstructive Pulmonary Disease, Secu-is-Cmob Additional Instructions: Followup with primary care provider in 3 -5 days. Take medications as directed. Patient questions asked and answered. ER precautions given, patient instructed to return to ER immediately for any new or worsening of symptoms. Kirt Floyd Dec 06, 2017 12:58
[2017-12-06] MEDS ORDERED: Albuterol/Ipratropium 3ml neb HHN ONE (13:00)
[2017-12-06 14:43] VITALS: BP 137/68
[2017-12-06] MEDS ORDERED: ZITHROMAX250 MG ORAL (14:58)
[2017-12-06 16:10] VITALS: BP 137/68
--- NOTE | 2017-12-07 09:07 | Diagnostic Imaging Report ---
Indication: Cough Technique: One view of the chest Comparison: 09/20/2017 Findings: Again demonstrated is a right shoulder prosthesis. Lungs and pleural spaces are clear. The heart size is normal. Aorta is tortuous. Findings are unchanged Impression: No acute process
== END 2017-12-06 15:20 | disposition home or self-care (01) ==
LOC: EMR 13:20
DX: J45.901 Unspecified asthma with (acute) exacerbation (principal); J44.9 Chronic obstructive pulmonary disease, unspecified; I10 Essential (primary) hypertension
CPT/HCPCS: 71045; 94640; 94664; 99283; J7620

== ENCOUNTER → 2018-07-16 | Outpatient (CLI) | payer MEDICARE, BC ==
[~2018-07-16] MED LIST changes: +ZITHROMAX250 MG ORAL
--- NOTE | 2018-07-16 14:21 | Diagnostic Imaging Report ---
Indication: Cough Comparison: 12/06/2017 2 views of the chest obtained. Findings: Lung volumes are low. There is a right shoulder reverse arthroplasty noted. Heart size is prominent. The aorta is mildly ectatic. IMPRESSION: No acute cardiopulmonary disease
== END | disposition home or self-care (01) ==
LOC: RAD 12:40
DX: Z01.811 Encounter for preprocedural respiratory examination (principal); R05 Cough; Z96.611 Presence of right artificial shoulder joint
CPT/HCPCS: 71046